=== PATIENT | female | born 1925 | race Caucasian/White ===

== ENCOUNTER 2016-09-07 11:41 | Emergency (ER) | payer OTHER, MEDICAID ==
[~2016-09-07] VITALS: Ht 157.5 cm; Wt 54.9 kg
[2016-09-07 11:43] VITALS: BP 151/76; PULSE 76; RESP 18; TEMP 76; O2SAT 98
--- NOTE | 2016-09-07 11:50 | NUR ---
Radha godwin in ED - 09/07/16 at 1157 by ANT Pt placed to ER bed 03, to sherine, to [employer] wiener. Pt report given to JJ Espinoza.
--- NOTE | 2016-09-07 11:53 | NUR ---
Pt BIB daughter in W/C from [facility]. Pt states that her mind has been "blanking out" and progressively getting worse over the past week. Pt AAOx3, even and non-labored respirations, no focal neurodeficits, NIH scale = 0. Pt not ambulatory per baseline, 2+ pitting edema noted to bilat ankles and feet.
--- NOTE | 2016-09-07 11:53 | NUR ---
Placed in room 3 . Placed on clinical research monitor, blood pressure machine and pulse oximeter. To gown for exam. Side rails up. Report given to
--- NOTE | 2016-09-07 11:55 | NUR ---
ER Dr. Stokes at bedside examining patient.
[2016-09-07 12:30] LABS: BASOPHILS % (AUTO) 0.5 % (0.0-2.0); EOSINOPHILS % (AUTO) 0.6 % (0.0-4.0); HEMATOCRIT 44.3 % (36-48); HEMOGLOBIN 14.3 g/dL (12.0-16.0); LYMPHOCYTES # (AUTO) 1.8 K/uL (1.0-5.5); LYMPHOCYTES % (AUTO) 26.2 % (20.5-51.5); MEAN CORPUSCULAR HEMOGLOBIN 33 pg (27-31); MEAN CORPUSCULAR HGB CONC 32 % (32-36); MEAN CORPUSCULAR VOLUME 102 fL (79.0-98.0); MONOCYTES # (AUTO) 0.5 K/uL (0.0-1.0); MONOCYTES % (AUTO) 7.8 % (1.7-9.3); NEUTROPHILS # (AUTO) 4.4 K/uL (1.8-7.7); NEUTROPHILS % (AUTO) 64.9 % (40.0-70.0); PLATELET COUNT (AUTO) 190 K/uL (130-430); RED BLOOD CELL COUNT(AUTO) 4.35 MIL/uL (4.2-6.2); RED CELL DISTRIBUTION WIDTH 13.8 % (9.0-15.0); WHITE BLOOD COUNT (AUTO) 6.7 K/uL (4.8-10.8)
[2016-09-07 12:32] LABS: BILIRUBIN,URINE NEGATIVE (NEGATIVE); BLOOD, URINE NEGATIVE (NEGATIVE); CLARITY/URINE CLEAR (CLEAR); COLOR,URINE YELLOW (YELLOW); GLUCOSE,URINE NEGATIVE (NEGATIVE); KETONES,URINE NEGATIVE (NEGATIVE); LEUKOCYTE ESTERASE ,URINE TRACE (NEGATIVE); NITRITE, URINE NEGATIVE (NEGATIVE); PH,URINE 6.5 (5.0-8.0); PROTEIN URINE NEGATIVE (NEGATIVE); UROBILINOGEN,URINE 0.2 (0.2-1.0)
[2016-09-07 12:39] LABS: ANION GAP 5 (5-15); CALCIUM 9.6 mg/dL (8.4-11.0); CHLORIDE 104 mmol/L (98-107); CREATININE 0.68 mg/dL (0.55-1.30); GLUCOSE 110 mg/dL (70-99); POTASSIUM 3.4 mmol/L (3.5-5.1); SODIUM SERUM 139 mmol/L (136-145); UREA NITROGEN, BLOOD 17 mg/dL (8-21)
[2016-09-07 12:40] LABS: PROTHROMBIN TIME 10.5 SECS (9.5-12.5)
[2016-09-07 12:44] LABS: BACTERIA,URINE RARE /HPF (None Seen); BARBITURATE, URINE NEGATIVE (NEG <=200); BENZODIAZEPINE, URINE NEGATIVE (NEG <=150); METHAMPHETAMINES SCREEN,URINE NEGATIVE (NEG <=500); RBC,URINE 0-3 /HPF (0-3); URINE AMPHETAMINE NEGATIVE (NEG <=500); URINE METHADONE NEGATIVE (NEG <=200)
[2016-09-07 12:45] LABS: CANNABINOID, URINE NEGATIVE (NEG <=50); COCAINE, URINE NEGATIVE (NEG <=150); OPIATE, URINE NEGATIVE (NEG <=100); PHENCYCLIDINE SCREEN,URINE NEGATIVE (NEG <=25); UR TRICYCLIC ANTIDEPRESSANTS NEGATIVE (NEG <=300); URINE OXYCODONE SCREEN NEGATIVE (NEG <=100); URINE PROPOXYPHENE SCREEN NEGATIVE (NEG <=300)
[2016-09-07 13:11] LABS: ALANINE AMINOTRANSFERASE 26 U/L (12-78); ASPARTATE AMINOTRANSFERASE 30 U/L (10-37); FREE T4 (FREE THYROXINE) 1.4 ng/dL (0.6-1.6); TOTAL BILIRUBIN 0.4 mg/dL (0.0-1.0); TOTAL PROTEIN, SERUM 7.7 g/dL (6.4-8.3)
[2016-09-07 13:13] LABS: ALCOHOL, BLOOD < 3 mg/dL (<10)
--- NOTE | 2016-09-07 13:42 | NUR ---
Pt stable, no signs of distress noted
--- NOTE | 2016-09-07 13:47 | NUR ---
Pt able to communicate appropriately and effectively when asked questions. AAOx4.
[2016-09-07] MEDS ORDERED: POTASSIUM CHLORIDE 20 MEQ TAB.PRT.SR PO ONE (14:15)
[2016-09-07] MEDS ORDERED: MAGNESIUM CITRATE 300 ML ORAL SOLUTION PO ONE (14:30)
[2016-09-07 14:45] VITALS: BP 159/80; PULSE 75; RESP 18; TEMP 97.5; O2SAT 97
--- NOTE | 2016-09-07 14:45 | NUR ---
Patient given written and verbal discharge instructions and verbalizes understanding. ER MD discussed with patient the results and treatment provided. Patient in stable condition. ID arm band removed. Patient educated on pain management and to follow up with PMD. Pain Scale 0/10. Opportunity for questions provided and answered.
== END 2016-09-07 14:45 | disposition home or self-care (01) ==
LOC: SED 11:41
DX: R53.1 Weakness (principal); H53.8 Other visual disturbances
CPT/HCPCS: 36415; 70450; 71010; 74000; 80053; 80307; 81000; 82140; 83605; 83880; 84439; 84484; 85025; 85610; 87040; 93005; 99285; G0482